=== PATIENT | female | born 1950 | race Caucasian/White ===

== ENCOUNTER 2024-12-20 09:19 | Outpatient (REF) | payer MEDICARE, SELFPAY ==
--- OUTSIDE RECORDS SUMMARY | 2024-12-20 09:31 | XMS_ITS | Clinical Summary ---
Author Organization [place] [address] [address] Formerly [facility] Building Address [address] [place] [address] Phone Care Team Providers Care Ssis Ssrs Developer Name Role Phone Gabino Le MD Primary Care Provider [phone] Allergies Active Allergy Reactions Criticality Noted Date Comments House Dust 06/09/2020 Mold 06/09/2020 Pollen Extracts 06/09/2020 Medications fluticasone propionate (FLONASE) 50 mcg/actuation nasal spray Administer 2 sprays into affected nostril(s). 3 Active calcium carb/vit D3/minerals (CALCIUM CARBONATE-VIT D3-MIN ORAL) Calcium Carbonate-Vit D-Min (CALCIUM 1200 OR) Take ??by mouth. - Oral Active pregabalin (LYRICA) 50 mg capsule 1 capsule (50 mg total) 2 (two) times a day. Max Daily Amount: 100 mg Active omeprazole (PriLOSEC) [address] capsule Take 1 capsule (40 mg total) by mouth 1 (one) time each day. 90 capsule 3 4 Active fexofenadine (KAMILLE) 60 mg tablet Take 1 tablet (60 mg total) by mouth 1 (one) time each day. Active Active Problems Problem Noted Date Diagnosed Date Allergic rhinitis 05/30/2024 Overview (05/30/2024): Dr Skelton, on allergy drops Anxiety 05/30/2024 GERD (gastroesophageal reflux disease) 4 Hiatal hernia 05/30/2024 Endometrial adenocarcinoma (CMS/HCC V24, CMS/HCC V28) 08/16/2020 Overview (05/30/2024): 08/2020; Stage IIIC1, endometrioid carcinoma with squamous differentiation, grade 2, 95% no myometrial invasion; T2 N1a hysterectomy (TLH/GUSTAVO/Left SLN, right full pelvic lymphadenectomy), pathology showing grade 2 ANCA with 1 out of 5 positive right pelvic nodes, cervical stromal involvement; Dr. Shivani Castellanos 10/15/20 initiation of adjuvant chemotherapy with carboplatin and paclitaxel, planning for 6 cycles, Dr. Osborne Plan for radiation therapy following systemic chemotherapy completion, Dr. Aguero Septate uterus 06/29/2020 Thickened endometrium 06/29/2020 Postmenopausal bleeding 06/10/2020 Overview (05/30/2024): Hysteroscopy, D&C, endometrial biopsy 08/10/2020 Last Assessment & Plan: I explained to Luis Enrique that most often postmenopausal bleeding is not associated with a precancerous or cancerous lesion, but we need to evaluate further to ensure this is not the case. I recommended she have a pelvic US. Based on results, will require at least EMB vs hysteroscopy if she has a discrete endometrial finding. She voiced understanding and agreed. She will schedule her US today and then schedule follow up for one week after with me. Mass of right breast on mammogram 07/18/2017 Overview (05/30/2024): Collection of microcysts, benign Chronic sinusitis 06/20/2017 Colon polyps 06/06/2017 Overview (05/30/2024): 04/01/2013 : one 8 mm polyp, pathology not available, rpt CN Q 5 years Depression 06/06/2017 Overview (05/30/2024): of her son in his 30's from stage 4 esophageal cancer Microscopic hematuria 06/06/2017 Overview (05/30/2024): US 10/07/2015, one cyto neg for malignant cells 08/05/15 Mitral valve prolapse 06/06/2017 Overview (05/30/2024): Had echo in past > 20 years, told MVP, avoids decongestants Encounters Date Type Department Care Team Description 10/30/2024 3:00 PM EST Office Visit [facility] [address] [place] [id number] Gabino Le MD Encounter for routine adult health examination without abnormal findings (Primary Dx); Skin abnormalities; Mixed hyperlipidemia; Hearing impaired person, bilateral from Last 3 Months Immunizations Name Administration Dates Next Due Influenza Quadravalent, MDCK , 0.5ml, preservative free (Flucelvax) 6mo and older 05/21/2018 Influenza trivalent, 0.5mL ( Fluzone High-dose) 65yo and older 05/20/2023,05/31/2021,06/01/2020,05/18 Influenza, Unspecified 06/10/2022 Segment SARS-CoV-2 COVID-19, mRNA, LNP-S, preservative free 06/02/2023,05/25/2022,02/11/2022,04/15 Pneumococcal conjugate 13 va lent (Prevnar 13, PCV13) 2mo and older 09/08/2017 Pneumococcal polysaccharide 23 valent (Pneumovax 23) 2yo and older 06/01/2020 Tdap Tetanus diptheria acell ular pertussis (Boostrix; Adacel) 7yo and older 09/24/2022 Zoster recombinant (Shingrix ) 19yo and older 01/05/2022,10/11/2021 Surgical History Surgery Date Site/Laterality Comments SINUS SURGERY 2012 Right PROCEDURE: TN UNLISTED PROCEDURE ACCESSORY SINUSES; COMMENT: Dr. Alanis SECTION x 3 PROCEDURE: HISTORICAL DELIVERY; COMMENT: 1976, 1977, 1981 WISDOM TOOTH EXTRACTION PROCEDURE: HISTORICAL WISDOM TEETH EXTRACTION OTHER SURGICAL HISTORY 2013 PROCEDURE: OUTSIDE ENDOSCOPY; COMMENT: Negative pathology COLONOSCOPY 2013 PROCEDURE: HISTORICAL COLONOSCOPY; COMMENT: repeat 5 years, + polyps BREAST BIOPSY PROCEDURE: TN BX BREAST NEEDLE CORE W/O IMAGING GUIDANCE SPX; COMMENT: calcification COLONOSCOPY 04/10/2018 PROCEDURE: HISTORICAL COLONOSCOPY; COMMENT: 1 hyperplastic polyp OTHER SURGICAL HISTORY 09/10/2020 PROCEDURE: TN TOTAL ABDOMINAL HYSTERECT W/WO RMVL TUBE OVARY; COMMENT: TLH/BSO/L SLN bx/right pelvic lymphadenectomy for uterine cancer CHOLECYSTECTOMY 02/07/2023 PROCEDURE: LAPAROSCOPY, CHOLECYSTECTOMY Medical History Medical History Date Comments Allergic rhinitis DX:Allergic rh initis; COMMENT: Dr Skelton, on allergy drops Anxiety DX:Anxiety Asthma DX:Asthma Cholelithiasis DX:Cholelithiasi s; COMMENT: Asymptomatic stone, stable Colon polyps 06/06/2017 DX:Colon polyps; COMMENT: 04/01/2013 : one 8 mm polyp, pathology not available, rpt CN Q 5 years Depression 06/06/2017 DX:Depression; C OMMENT: of her son in his 30's from stage 4 esophageal cancer GERD (gastroesophageal reflux disease) DX:GERD (gastroesophageal reflux disease) History of shingles DX:History o f shingles Microscopic hematuria 06/06/2017 DX:Microsc opic hematuria; COMMENT: US 10/07/2015, one cyto neg for malignant cells 08/05/15 Mitral valve prolapse 06/06/2017 DX:Mitral valve prolapse; COMMENT: Had echo in past > 20 years, told MVP, avoids decongestants Palpitations 06/06/2017 DX:Palpitations Hiatal hernia DX:Hiatal hernia Family History Medical History Relation Name Comments Breast cancer Aunt Other: OA Brother 1 Lung cancer Brother 2 Stroke Father COPD, melanoma Heart attack Mother HTN, OA Other: OA Sister Esophageal cancer Son i n his 30's Relation Name Status Comments Aunt Brother 1 Brother 2 Father Mother Sister Son Social History Tobacco Use Types Packs/Day Years Used Date Smoking Tobacco: Never Smokeless Tobacco: Never Tobacco Cessation:Counseling Given: Not Answered Alcohol Use Standard Drinks/Week Comments Yes 1 (1 standard drink = 0.6 oz pur e alcohol) Housing Instability Answer Date Recorde d Are you worried that in the next 2 months you may not have stable housing? No 2024 Food Access & Nutrition Answer Date Rec orded Do you have access to a vari ety of food including fruits and vegetables? Yes 2024 Access to Healthcare Answer Date Record ed Within the last 3 months, ho w many times did you visit the emergency department for your medical care? 0 2024 Health Literacy Answer Date Recorded How often do you need to hav e someone help you when you read instructions, pamphlets, or other written material from your doctor or pharmacy? Never 2024 Caregiver: How often do you need to have someone help you when you read instructions, pamphlets, or other written material from your doctor or pharmacy? Not on file 2024 Financial Risk Answer Date Recorded How hard is it for you to pa y for the very basics like food, housing, medical care, and air conditioning / heating? Not very hard 2024 Transportation Answer Date Recorded Has the lack of transportati on kept you from meetings, work, or from getting things needed for daily living? No Has the lack of transportati on kept you from medical appointments or from getting medications? No 2024 Social Isolation Answer Date Recorded How often do you feel lonely or isolated from those around you? Sometimes 2024 Food Risk Answer Date Recorded Within the past 12 months we worried whether our food would run out before we got money to buy more. Never true 2024 Within the past 12 months th e food we bought just didn't last and we didn't have money to get more. Never true 2024 Dependent Care Answer Date Recorded Do you need help finding or paying for care for your loved ones. For example, child support case officer or elderly care for an older adult? No 2024 Education Answer Date Recorded Do you think completing more education or training, like finishing a GED, going to college, or learning a trade, would be helpful for you? No 2024 Employment and Income Answer Date Recor ded During the last four weeks, have you been actively looking for work? No 2024 Living Situation Answer Date Recorded What is your living situation? 0 2024 Comments No Sex and Gender Information Value Date Recorded Sex Assigned at Not on file Legal Sex Female 7:12 PM EST Gender Identity Not on file Sexual Orientation Not on file Obstetrics History Last Filed Vital Signs Vital Sign Reading Time Taken Comments Blood Pressure 118/79 10/30/2024 2:55 PM EST Pulse 93 10/30/2024 2:55 PM EST Temperature - - Respiratory Rate - - Oxygen Saturation - - Inhaled Oxygen Concentration - - Weight 69.9 kg (154 lb 3.2 oz) 10/30/2024 2:55 P M EST Height 158.8 cm (5' 2.5 ) 10/30/2024 2:55 PM EST Body Mass Index 27.75 10/30/2024 2:55 PM EST Plan of Treatment Health Maintenance Due Date Last Done Comments RSV Immunization Adult Patients (1 - Risk 60-74 years 1-dose series) 2011 Medicare Annual Wellness Visit 07/30/2022 COVID-19 Vaccine ( season) 2024 06/06/2024, 06/02/2023, 05/25/2022, Additional history exists Falls Risk Assessment 08/02/2025 08/02/2024 Hypertension/CHF/CAD Annual BMP Blood Test 08/02/2025 08/02/2024, 03/17/2022 Depression Screening 2025 2024, 08/02/20 24 Social Influencers of Health Screening 2025 2024, 08/02/2024 Breast Cancer Screening 12/26/2025 12/27/19 24, 12/20/2022, 12/13/2021, Additional history exists Colorectal Cancer Screening: Colonoscopy 11/21/2028 11/22/2023, 11/22/2023 Cholesterol Screening (Lipid Panel) 10/30/2029 10/30/2024, 04/06/2023 DTaP,Tdap,and Td Vaccines (3 - Td or Tdap) 09/24/2032 09/24/2022, 12/16/2005 Osteoporosis Screening (Bone Density Screening) 12/21/2032 12/21/2022, 10/10/2019, 06/22/2017 Hepatitis C Screening Completed 06/01/2020, 020 Pneumococcal Vaccine: 50+ Years Completed 06/01/2020, 09/08/2017 Zoster Vaccines Completed 01/05/2022, 10/11/2021 Influenza Vaccine Completed 06/06/2024, , 06/10/2022, Additional history exists HIB Vaccines Aged Out No longer eligi ble based on patient's age to complete this topic HPV Vaccines Aged Out No longer eligi ble based on patient's age to complete this topic Hepatitis A Vaccines Aged Out No long er eligible based on patient's age to complete this topic Hepatitis B Vaccines Aged Out No long er eligible based on patient's age to complete this topic IPV Vaccines Aged Out No longer eligi ble based on patient's age to complete this topic MMR Vaccines Aged Out No longer eligi ble based on patient's age to complete this topic Meningococcal ACWY Vaccine Aged Out N o longer eligible based on patient's age to complete this topic Meningococcal B Vaccine Aged Out No l onger eligible based on patient's age to complete this topic RSV Immunization Patients Under 20 months Aged Out No longer eligible based on patient's age to complete this topic Varicella Vaccines Aged Out No longer eligible based on patient's age to complete this topic Procedures Procedure Name Priority Date/Time Associated Diagnosis Comments LIPID PANEL WITH REFLEX TO DIRECT LDL Routine 10/30/2024 3:34 PM EST Mixed hyperlipidemia BASIC METABOLIC PANEL Routine 08/02/2024 1:55 PM EST Encounter for long-term (current) use of medications [facility] SCREENING DIGITAL Routine 12/27/2023 11:49 AM EDT Encounter for screening mammogram for malignant neoplasm of breast COLONOSCOPY Routine 11/22/2023 [facility] DEXA AXIAL SKELETON Routine 12/21/2022 8:14 AM EDT Encounter for screening for osteoporosis HEPATITIS C SCREENING Routine 06/01/2020 from Last 3 Months or Most Recently Relevant to Health Maintenance Results * Lipid panel with reflex to direct LDL (10/30/2024 3:34 PM EST) Cholesterol 197 0 - 200 mg/dL LAB CHEMISTRY METHOD 10/30/2024 8:[address] [facility] Triglycerides 105 0 - 150 mg/dL LAB CHEMISTRY METHOD 10/30/2024 8:[address] [facility] HDL 95 >=40 mg/dL LAB CHEMISTRY METHOD 10/30/2024 8:[address] [facility] LDL Calculated 81 0 - 100 mg/dL LAB CHEMISTRY METHOD 10/30/2024 8:[address] [facility] VLDL Cholesterol Allen 21 mg/dL LAB CHEMISTRY METHOD 10/30/2024 8:10 PM [facility] Non HDL Chol. (LDL+VLDL) 102 <145 mg/dL LAB CHEMISTRY METHOD 10/30/2024 8:10 PM [facility] Chol/HDL Ratio 2.1 0.0 - 4.4 LAB CHEMISTRY METHOD 10/30/2024 8:10 PM [facility] Blood Venous blood specimen / Unknown Venipuncture / Unknown 10/30/2024 3:34 PM EST 10/30/2024 3:34 PM EST Gabino Le MD LAB BLOOD ORDERABLES Final Resu lt [facility] [address] [place] [address], [place] [phone] * (ABNORMAL) Basic metabolic panel (08/02/2024 1:55 PM EST) Sodium 141 133 - 145 mmol/L LAB CHEMISTRY METHOD 08/02/2024 7:17 PM [facility] Potassium 4.7 3.5 - 5.5 mmol/L LAB CHEMISTRY METHOD 08/02/2024 7:17 PM [facility] Chloride 106 96 - 110 mmol/L LAB CHEMISTRY METHOD 08/02/2024 7:17 PM [facility] CO2 30 21 - 32 mmol/L LAB CHEMISTRY METHOD 08/02/2024 7:17 PM [facility] Anion Gap 5 3 - 11 LAB CHEMISTRY METHOD 08/02/2024 7:17 PM [facility] Glucose 95 70 - 100 mg/dL LAB CHEMISTRY METHOD 08/02/2024 7:17 PM [facility] BUN 27(H) 5 - 25 mg/dL LAB CHEMISTRY METHOD 08/02/2024 7:[address] [facility] Creatinine 1.02 0.50 - 1.10 mg/dL LAB CHEMISTRY METHOD 08/02/2024 7:17 PM [facility] eGFR 59(L) >=60 mL/min/1. 73m2 LAB CHEMISTRY METHOD 08/02/2024 7:[address] [facility] Comment:Calculation based on the??Chronic Kidney Disease Epidemiology Collaboration (CKD-EPI) equation refit??without adjustment for race. BUN/Creatinine Ratio 26.5 LAB CHEMISTRY METHOD 08/02/2024 7:[address] [facility] Calcium 9.7 8.5 - 10.5 mg/dL LAB CHEMISTRY METHOD 08/02/2024 7:[address] [facility] Blood Venous blood specimen / Unknown Venipuncture / Unknown 08/02/2024 1:55 PM EST 08/02/2024 1:55 PM EST us Gabino Le MD LAB BLOOD ORDERABLES Final Resu lt [facility] [address] [place] [address], * KATE SCREENING DIGITAL (12/27/2023 11:49 AM EDT) Anatomical Region Laterality Modality Mammography 12/27/2023 10:1 9 AM EDT Narrative 12/27/2023 11:49 AM EDT [facility] Diagnostic Imaging Department [address] [place] [address] Patient: ??LUIS ENRIQUE SALGUERO ?/Age/Sex: 1950 - 73 - F Unit#: ??[id number] ? Location/Status: ??SPDIMAM/REG CLI ? Mnemonic/Ordering Site: ??DIGSC/SPMAM Ordering Physician: ??GABINO LE MD [facility] Screening Digital - 12/27/23 - 1058 Report Status:Signed EXAM: [facility] Screening Digital EXAM DATE AND TIME: 12/27/2023 10:59 AM HISTORY: ??Screening. Right breast biopsy in 2010, pathology benign. Personal history of endometrial carcinoma. COMPARISON: ??12/20/22, 12/13/21, 10/16/20 TECHNIQUE: Bilateral digital breast tomosynthesis was performed in the CC and MLO projections. Computer aided detection with YouBeQB 3D 3.1 was employed. TISSUE DENSITY: b. There are scattered areas of fibroglandular density. FINDINGS: No suspicious masses, grouped microcalcifications, or areas of architectural distortion are seen. A biopsy marker is again seen in the upper outer right breast. Vascular calcification is present. The skin is unremarkable. IMPRESSION: Stable mammographic appearance of the breasts. ??No evidence of malignancy is seen. A negative mammogram in the presence of a clinically suspicious palpable abnormality does not preclude the possibility of malignancy or alter the indications for biopsy. BI-RADS: ??Category 2: Benign RECOMMENDATION(S): 1: Routine screening mammogram BILATERAL in 1 year. Dictating Physician: ??LEESA SAUCEDA MD Electronically Signed by: ??LEESA SAUCEDA MD Dic Date/Time: ??12/27/23 1149 Sign date/Time: ??12/27/23 1149 Procedure Note Leesa Sauceda MD - 04/15/2024 [facility] Diagnostic Imaging Department [address] [place] [address] Patient: LUIS ENRIQUE SALGUERO Lopez /Age/Sex: 1950 - 73 - F Unit#: [id number] Location/Status: SPDIMA/REG CLI Mnemonic/Ordering Site: [facility] [place] Ordering Physician: GABINO LE MD [facility] Screening Digital - 12/27/23 - 1058 Report Status:Signed EXAM: [facility] Screening Digital EXAM DATE AND TIME: 12/27/2023 10:59 AM HISTORY: Screening. Right breast biopsy in 2010, pathology benign.Personal history of endometrial carcinoma. COMPARISON: 12/20/22, 12/13/21, 10/16/20 TECHNIQUE: Bilateral digital breast tomosynthesis was performed in the CCand MLO projections. Computer aided detection with YouBeQB 3D 3.1was employed. TISSUE DENSITY: b. There are scattered areas of fibroglandular density. FINDINGS: No suspicious masses, grouped microcalcifications, or areas ofarchitectural distortion are seen. A biopsy marker is again seen in the upper outerright breast. Vascular calcification is present. The skin is unremarkable. IMPRESSION: Stable mammographic appearance of the breasts. No evidence of malignancyis seen. A negative mammogram in the presence of a clinically suspicious palpable abnormality does not preclude the possibility of malignancy or alter the indications for biopsy. BI-RADS: Category 2: Benign RECOMMENDATION(S): 1: Routine screening mammogram BILATERAL in 1 year. Dictating Physician: LEESA SAUCEDA MD Electronically Signed by: LEESA SAUCEDA MD Dic Date/Time: 12/27/23 1149 Sign date/Time: 12/27/23 1149 Gabino Le MD IMG BI PROCEDURES Final Result * Colonoscopy (11/22/2023) Colonoscopy No Interpretation , Abstracted Anatomical Region Laterality Modality Other Historical Provider HEALTH MAINTENANCE Final Result * [facility] DEXA AXIAL SKELETON (12/21/2022 8:14 AM EDT) Anatomical Region Laterality Modality Mammography 12/20/2022 2:14 PM EDT Narrative 12/21/2022 8:14 AM EDT [facility] Diagnostic Imaging Department [address] [place] [address] Patient: ??LUIS ENRIQUE SALGUERO ?/Age/Sex: 1950 - 72 - F Unit#: ??[id number] ? Location/Status: ??SPDIMAM/REG CLI ? Mnemonic/Ordering Site: ??MAMDEXAAX/SPMAM Ordering Physician: ??GABINO LE MD Kate Dexa Axial Skeleton - 12/20/22 - 0899 HISTORY: ??The patient is a 72-year-old postmenopausal female with clinical concern for metabolic bone disease. FINDINGS: ??Dual energy x-ray absorptiometry of the lumbar spine and femurs is performed. The mean bone mineral density at L1-L4 (with the exclusion of L2 and L3) is 0.966 gm/cm2 which is 83% of that of young normals and 100% of that of age matched controls. This yields a T-score of -1.7 and a Z-score of 0.0 which is diagnostic of osteopenia. The mean bone mineral density of the femurs bilaterally is 0.779 gm/cm2 which is 77% of that of young normals and 95% of that of age matched controls. ??This yields a T-score of -1.8 and a Z-score of -0.3 which is diagnostic of osteopenia. ??However, the T-score of the right femoral neck is -2.6 which is diagnostic of osteoporosis. IMPRESSION: 1. Osteoporosis. 2. FRAX analysis yields a 10-year probability of major osteoporotic fracture of 16.3% and a 10-year probability of hip fracture of 4.7%. Code 87846 Dictating Physician: ??MUSA ROBERSON MD Electronically Signed by: ??MUSA ROBERSON MD Dic Date/Time: ??12/21/22812 Sign date/Time: ??12/21/22 08 Procedure Note Musa Roberson MD - 09/29/2023 [facility] Diagnostic Imaging Department [address] [place] [address] Patient: NOEMYLUIS ENRIQUE D.O.B./Age/Sex: 1950 - 72 - F Unit#: [id number] Location/Status: SPDIMAM/REG CLI [facility] Ordering Physician: GABINO LE MD Kate Dexa Axial Skeleton - 12/20/22 - 1506 HISTORY: The patient is a 72-year-old postmenopausal female withclinical concern for metabolic bone disease. FINDINGS: Dual energy x-ray absorptiometry of the lumbar spine and femursis performed. The mean bone mineral density at L1-L4 (with the exclusion ofL2 and L3) is 0.966 gm/cm2 which is 83% of that of young normals and 100% of thatof age matched controls. This yields a T-score of -1.7 and a Z-score of 0.0which is diagnostic of osteopenia. The mean bone mineral density of the femurs bilaterally is 0.779 gm/qr3xzqks is 77% of that of young normals and 95% of that of age matched controls.This yields a T-score of -1.8 and a Z-score of -0.3 which is diagnostic of osteopenia. However, the T-score of the right femoral neck is -2.6 whichis diagnostic of osteoporosis. IMPRESSION: 1. Osteoporosis. 2. FRAX analysis yields a 10-year probability of major osteoporoticfracture of 16.3% and a 10-year probability of hip fracture of 4.7%. Code 35239 Dictating Physician: MUSA ROBERSON MD Electronically Signed by: MUSA ROBERSON MD Dic Date/Time: 12/21/22812 Sign date/Time: 12/21/22813 Gabino Le MD IMG BI PROCEDURES Final Result * Hepatitis C Screening (06/01/2020) Pathologist [facility] Hepatitis C Screening Abstracted Historical Provider HEALTH MAINTENANCE Final Result from Last 3 Months or Most Recently Relevant to Health Maintenance Insurance [employer] Care Teams Ssis Ssrs Developer Relationship Specialty Start Date End Date Gabino Le MD [address] [place] [address] PCP - General Internal Medicine 05/17/21
--- OUTSIDE RECORDS SUMMARY | 2024-12-20 09:31 | XMS_ITS | Clinical Summary ---
Author Organization [facility], Address [address] [place] [address] Phone Care Team Providers Care Materials Recycler Name Role Phone Le, Anam Primary Care Provider [phone] Allergies No known active allergies Medications omeprazole (PriLOSEC) [address] capsule Take 40 mg by mouth 1 (one) time each day Do not crush or chew. Active fluticasone (VERAMYST) 27.5 MCG/SPRAY nasal spray Administer 2 sprays into each nostril 1 (one) time each day Active FEXOFENADINE HCL PO Take 1 tablet by mouth 1 (one) time each day Active ibuprofen (ADVIL,MOTRIN) 600 MG tablet Take 600 mg by mouth every 6 (six) hours if needed for mild pain Active oxyCODONE (OXY-IR) 5 MG immediate release capsule Take 5 mg by mouth every 6 (six) hours if needed for moderate pain Active gabapentin (NEURONTIN) 100 MG capsule Take 100 mg by mouth in the morning and 100 mg at noon and 100 mg in the evening. 3 Active calcium carbonate (OS-BALJEET) 1250 (500 Ca) MG chewable tablet Chew 1 tablet 1 (one) time each day Active Multiple Vitamin (multivitamin) capsule Take 1 capsule by mouth 1 (one) time each day Active Active Problems Problem Noted Date Diagnosed Date Acid reflux 09/30/2020 Asthma 09/30/2020 Endometrial carcinoma 09/24/2020 Allergic rhinitis 09/24/2020 Asthenia 09/24/2020 Bicornate uterus 09/24/2020 Cholelithiasis with cholecystitis 09/24/2020 Depressive disorder 09/24/2020 Erosive gastritis 09/24/2020 Hypertension 09/24/2020 Osteoarthritis 09/24/2020 Osteoporosis 09/24/2020 Gastroesophageal reflux disease 09/24/2020 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 Mitral valve prolapse 09/24/2020 Herpes zoster 09/24/2020 Cough 06/28/2019 Acute upper respiratory infection 06/27/2019 Social History Tobacco Use Types Packs/Day Years Used Date Smoking Tobacco: Never Tobacco Cessation:Counseling Given: Not Answered Alcohol Use Standard Drinks/Week Comments Yes 5 (1 standard drink = 0.6 oz pur e alcohol) Comments Unknown Sex and Gender Information Value Date Recorded Sex Assigned at Not on file Legal Sex Female 11:40 AM EST Gender Identity Not on file Sexual Orientation Not on file Last Filed Vital Signs Vital Sign Reading Time Taken Comments Blood Pressure 120/80 06/23/2023 1:32 PM EDT Pulse 80 06/23/2023 1:32 PM EDT Temperature 35.9 ??C (96.6 ??F) 06/23/2023 1:32 PM ED T Respiratory Rate 16 06/23/2023 1:32 PM EDT Oxygen Saturation 98% 06/23/2023 1:32 PM EDT Inhaled Oxygen Concentration - - Weight 63.5 kg (140 lb) 06/23/2023 1:32 PM EDT Height 157.5 cm (5' 2 ) 06/23/2023 1:32 PM EDT Body Mass Index 25.61 06/23/2023 1:32 PM EDT Plan of Treatment Health Maintenance Due Date Last Done Comments Breast Cancer Screening 1950 Pneumococcal Vaccine: 50+ Ye ars (1 of 2 - PCV) 1970 Colorectal Cancer Screening: Annual FOBT 2000 Colorectal Cancer Screening: Colonoscopy 2000 Colorectal Cancer Screening: Sigmoidoscopy 2000 Influenza Vaccine (Season Ended) 2025 Hepatitis B Vaccine Aged Out No longe r eligible based on patient's age to complete this topic Insurance [employer] Medicare Care Teams Materials Recycler Relationship Specialty Start Date End Date Byron Le [address] [place] [address] PCP - General 08/28/22
== END 2024-12-20 09:20 | disposition home or self-care (01) ==
LOC: HO.SH 09:19
PROVIDERS: Visit Provider Internal Medicine
DX: Z01.118 Encounter for examination of ears and hearing with other abnormal findings (principal); H93.13 Tinnitus, bilateral; H90.3 Sensorineural hearing loss, bilateral
CPT/HCPCS: 92557